=== PATIENT | female | born 1970 | race Caucasian/White ===

== ENCOUNTER 2017-01-08 18:49 | Emergency (ER) | payer OTHER ==
[~2017-01-08 18:49] MED LIST: ACULAR10 ML OD; ALBUTEROL17 GM INH; BACIT-POLYMYXI3.5 GM OP; LEVAQUIN PO
[2017-01-08] MEDS ORDERED: NO MEDICATIONS (18:53)
== END 2017-01-08 20:40 | disposition home or self-care (01) ==
LOC: SED 18:49
DX: T63.441A Toxic effect of venom of bees, accidental (unintentional), initial encounter (principal); Z90.49 Acquired absence of other specified parts of digestive tract; Z88.0 Allergy status to penicillin; F17.210 Nicotine dependence, cigarettes, uncomplicated; Z88.8 Allergy status to other drugs, medicaments and biological substances; Z88.1 Allergy status to other antibiotic agents
CPT/HCPCS: 99284